=== PATIENT | female | born 1990 | race African-American/Black ===

== ENCOUNTER 2017-01-29 19:20 | Emergency (ER) | payer OTHER ==
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
[2017-01-29 19:47] VITALS: BP 134/98; PULSE 76; TEMP 97.9; BMI 27.4
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
== END 2017-01-29 21:38 | disposition home or self-care (01) ==
LOC: JER 19:20
DX: H72.91 Unspecified perforation of tympanic membrane, right ear (principal); Y04.2XXA Assault by strike against or bumped into by another person, initial encounter; Y07.03 Male partner, perpetrator of maltreatment and neglect; X58.XXXA Exposure to other specified factors, initial encounter; Y93.89 Activity, other specified; Y92.9 Unspecified place or not applicable
CPT/HCPCS: 70450-TC; 70486-TC; 84703; 99282-25

== ENCOUNTER 2017-05-26 09:01 | Emergency (ER) | payer OTHER ==
[2017-05-26 09:07] VITALS: BP 132/105; PULSE 61; TEMP 98.2; BMI 24.0
[2017-05-26 09:58] LABS: URINE APPEARANCE SLCLOUDY; URINE BILIRUBIN NEGATIVE (NEGATIVE); URINE BLOOD 1+ (NEGATIVE); URINE COLOR YELLOW; URINE GLUCOSE (UA) NEGATIVE (NEGATIVE); URINE KETONE NEGATIVE (NEGATIVE); URINE NITRITE NEGATIVE (NEGATIVE); URINE PROTEIN NEGATIVE (NEGATIVE); URINE UROBILINOGEN NEGATIVE mg/dL (0.2-1.0)
--- NOTE | 2017-05-26 10:45 | PDOC ---
History of Present Illness - General Chief Complaint: Sore Throat Stated Complaint: SOB, THROAT PAIN Time Seen by Provider: 05/26/17 09:17 History Source: Patient Exam Limitations: No Limitations - History of Present Illness Initial Comments: 05/26/17 10:43 Patient is a [26-year-old female, has significant history for swelling of the neck for greater than 2 months currently being worked up by her PMD, has thyroid scan scheduled on Monday. Patient to emergency department today requesting thyroid scan states she does not want to wait till Monday. Patient denies any new symptoms, no difficulty swallowing, no fever, no difficulty breathing, no chest pain or shortness of breath. Patient also just completed her menses and states that she noticed a small amount of blood in her urine was just concerned. Denies any pain, no urinary frequency did have a urinary tract infection 1 month prior was concerned she still may have infection.] Past Medical History: [Denies]. Allergies: No known allergies Medications: [None] Family History: Non-contributory Social History: Denies smoking, alcohol use, or IVDU Review of Systems GENERAL/CONSTITUTIONAL: [No fever or chills. No weakness. No weight change.] HEAD, EYES, EARS, NOSE AND THROAT: [No change in vision. No ear pain or discharge. No sore throat. Swelling to the neck. ] CARDIOVASCULAR: [No chest pain or shortness of breath.] RESPIRATORY: [No cough, wheezing, or hemoptysis.] GASTROINTESTINAL: [No nausea, vomiting, diarrhea or constipation. No rectal bleeding.] GENITOURINARY: [No dysuria, frequency, or change in urination.] MUSCULOSKELETAL: [No joint or muscle swelling or pain. No neck or back pain.] SKIN AND BREASTS: [No rash or easy bruising.] NEUROLOGIC: [No headache, vertigo, loss of consciousness, or loss of sensation.] PSYCHIATRIC: [No depression or anxiety.] ENDOCRINE: [No increased thirst. No abnormal weight change.] HEMATOLOGIC/LYMPHATIC: [No anemia, easy bleeding, or history of blood clots.] ALLERGIC/IMMUNOLOGIC: [No hives or skin allergy. No latex allergy.] Physical Exam: GENERAL: [The patient is awake, alert, and fully oriented, in no acute distress. ] HEAD: [Normal with no signs of trauma.] EYES: [Pupils equal, round and reactive to light, extraocular movements intact, sclera anicteric, conjunctiva clear.] ENT: [Ears normal, nares patent, oropharynx clear without exudates. Moist mucous membranes. No uvula deviation] NECK: [Normal range of motion, supple without lymphadenopathy, JVD, or masses. ] LUNGS: [Breath sounds equal, clear to auscultation bilaterally. No wheezes, and no crackles.] HEART: [Regular rate and rhythm, normal S1 and S2 without murmur, rub or gallop. ] ABDOMEN: [Soft, nontender, normoactive bowel sounds. No guarding, no rebound. No masses. No bruising or abrasions] MUSCULOSKELETAL: [Normal range of motion, no edema. No clubbing or cyanosis. No cords, erythema, or tenderness. No CVA Tenderness with fist.] NEUROLOGICAL: [Cranial nerves II through XII grossly intact. Normal speech, normal gait.] SKIN: [Warm, Dry, normal turgor, no rashes or lesions noted.] Past History - Past Medical History Allergies/Adverse Reactions: Allergies Allergy/AdvReac Type Severity Reaction Status Date / Time No Known Allergies Allergy Verified 05/26/17 09:03 Home Medications: Ambulatory Orders NK [No Known Home Medication] 05/26/17 COPD: No Other medical history: DENIES. - Reproductive History (#): 1 Para: 1 - Immunization History Immunization Up to Date: Yes - Suicide/Smoking/Psychosocial Hx Smoking Status: No Smoking History: Never smoked Have you smoked in the past 12 months: No Number of Cigarettes Smoked Daily: 0 Hx Alcohol Use: No Drug/Substance Use Hx: No Substance Use Type: None *Physical Exam - Vital Signs Last Vital Signs Temp Pulse Resp BP Pulse Ox 98.2 F 61 19 132/105 100 05/26/17 09:03 05/26/17 09:03 05/26/17 09:03 05/26/17 09:03 05/26/17 09:03 ED Treatment Course - ADDITIONAL ORDERS Additional order review: Laboratory Results 05/26/17 09:41 Urine Color Yellow Urine Appearance Slcloudy Urine pH 5.0 Ur Specific [place] 1.027 Urine Protein Negative Urine Glucose (UA) Negative Urine Ketones Negative Urine Blood 1+ H Urine Nitrite Negative Urine Bilirubin Negative Urine Urobilinogen Negative Urine HCG, Qual Negative Medical Decision Making - Medical Decision Making 05/26/17 11:40 A/P: Patient here for evaluation and requesting thyroid scan states that she feels fullness to her neck does have an appointment for scan on Monday and has been being followed by her primary care doctor for same. Patient denies any new complaints, there is no difficulty swallowing, no difficulty breathing, no chest pain or shortness of breath I explained to patient that she really has an appointment and is being followed by her PMD there is no acute process going on at this time. Patient will need to follow-up with her scheduled appointment at her PMD. Patient also concerned because her menses has just completed and she noticed a small amount of blood on the paper when wiping also recently a UTI concerned she still may have infection, urinalysis sent there is +1 blood with no evidence of infection +1 most likely from completing menses. Patient will follow-up with her PMD without current complaint. I discussed the physical exam findings, ancillary test results and final diagnoses with the patient. I answered all of the patient's questions. The patient was satisfied with the care received and felt comfortable with the discharge plan and treatment plan. The patient will call to arrange follow-up and will return to the Emergency Department with any new, persistent or worsening symptoms. *DC/Admit/Observation/Transfer Diagnosis at time of Disposition: History of neck swelling Blood in urine Qualifiers: Hematuria type: benign essential microscopic Qualified Code(s): R31.1 - Benign essential microscopic hematuria - Discharge Dispostion Disposition: HOME Condition at time of disposition: Good Admit: No - Referrals Referrals: Kris Clayton [Primary Care Provider] - - Patient Instructions Additional Instructions: PLease follow-up with your scheduled thyroid scan and follow up with her primary care doctor upon discharge today. Recommend follow up with urology - Post Discharge Activity Forms/Work/School Notes: Back to Work
[2017-05-26 11:35] LABS: URINE MUCUS RARE; URINE RBC 2 /hpf (0-3); URINE WBC <1 /hpf (3-5)
[2017-05-26 20:09] LABS: URINE LEUK ESTERASE Negative (NEGATIVE)
== END 2017-05-26 10:46 | disposition home or self-care (01) ==
LOC: JERFT 09:01
DX: R22.1 Localized swelling, mass and lump, neck (principal); R31.1 Benign essential microscopic hematuria
CPT/HCPCS: 81003; 81015; 84703; 87086; 99281-25

== ENCOUNTER 2017-09-27 16:07 | Emergency (ER) | payer OTHER ==
--- NOTE | 2017-09-27 16:13 | PDOC ---
Rapid Medical Evaluation Time Seen by Provider: 09/27/17 16:09 Medical Evaluation: Allergies Allergy/AdvReac Type Severity Reaction Status Date / Time No Known Allergies Allergy Verified 09/27/17 16:10 I have performed a brief in-person evaluation of this patient. The patient presents with a chief complaint of: left sided back pain with deep inspiration x 2 days Pertinent physical exam findings: none I have ordered the following: hcg, CXR The patient will proceed to the ED for further evaluation.
[2017-09-27 16:14] VITALS: BP 135/51; PULSE 67; TEMP 98.6; BMI 25.7
--- NOTE | 2017-09-27 16:32 | PDOC ---
History of Present Illness - General Chief Complaint: Back Pain Stated Complaint: BACK PAIN Time Seen by Provider: 09/27/17 16:09 History Source: Patient Exam Limitations: No Limitations - History of Present Illness Initial Comments: 09/27/17 17:42 Patient is a 27-year-old female no past medical history who presents to the emergency department today complaining of mid back pain when she breathes. Patient states that when she takes a deep breath she feels a sharp pain. Patient states that she had a cough the last 2 weeks. It is since resolved. Patient also states that she has some burning on urination and notices white cottage cheese like discharge. Denies fevers, chills, shortness of breath, difficulty breathing, sore throat, chest pain, gait change, hematuria, nausea, vomiting and diarrhea, saddle anesthesia and bladder or bowel incontinence.. Past History - Travel Traveled outside of the country in the last 30 days: No Close contact w/someone who was outside of country & ill: No - Past Medical History Allergies/Adverse Reactions: Allergies Allergy/AdvReac Type Severity Reaction Status Date / Time No Known Allergies Allergy Verified 09/27/17 16:10 Home Medications: Ambulatory Orders Cephalexin Monohydrate [Keflex -] 500 mg PO BID #14 capsule 09/27/17 Fluconazole 150 mg PO ONCE #2 tablet 09/27/17 COPD: No Other medical history: denies. - Reproductive History (#): 1 Para: 1 - Immunization History Immunization Up to Date: Yes - Suicide/Smoking/Psychosocial Hx Smoking Status: No Smoking History: Never smoked Have you smoked in the past 12 months: No Number of Cigarettes Smoked Daily: 0 Hx Alcohol Use: No Drug/Substance Use Hx: No Substance Use Type: None Review of Systems - Review of Systems Able to Perform ROS?: Yes Comments:: 09/27/17 16:32 CONSTITUTIONAL: Absent: fever, chills, diaphoresis, generalized weakness, malaise, loss of appetite HEENT: Absent: rhinorrhea, nasal congestion, throat pain, throat swelling, difficulty swallowing, mouth swelling, ear pain, eye pain, visual Changes CARDIOVASCULAR: Absent: chest pain, loss of consciousness, palpitations, irregular heart rate, peripheral edema RESPIRATORY: Absent: cough, shortness of breath, dyspnea with exertion, orthopnea, wheezing, stridor, hemoptysis GASTROINTESTINAL: Absent: abdominal pain, abdominal distension, nausea, vomiting, diarrhea, constipation, melena, hematochezia GENITOURINARY: Present: dysuria, vaginal discharge Absent: frequency, urgency, hesitancy, hematuria, flank pain, genital pain MUSCULOSKELETAL: Present: Mid back pain Absent: myalgia, arthralgia, joint swelling SKIN: Absent: rash, itching, pallor HEMATOLOGIC/IMMUNOLOGIC: Absent: easy bleeding, easy bruising, lymphadenopathy, frequent infections ENDOCRINE: Absent: unexplained weight gain, unexplained weight loss, heat intolerance, cold intolerance NEUROLOGIC: Absent: headache, focal weakness or paresthesias, dizziness, unsteady gait, seizure, mental status changes, bladder or bowel incontinence PSYCHIATRIC: Absent: anxiety, depression, suicidal or homicidal ideation, hallucinations. Is the patient limited Polish proficient: No *Physical Exam - Vital Signs Last Vital Signs Temp Pulse Resp BP Pulse Ox 98.6 F 67 19 135/51 100 09/27/17 16:10 09/27/17 16:10 09/27/17 16:10 09/27/17 16:10 09/27/17 16:10 - Physical Exam Comments: 09/27/17 16:32 GENERAL: Well developed, well nourished. Awake and alert. No acute distress. HEENT: Normocephalic, atraumatic. PERRLA, EOMI. No conjunctival pallor. Sclera are non- icteric. Moist mucous membranes. Oropharynx is clear. NECK: Supple. Full ROM. No JVD. Carotid pulses 2+ and symmetric, without bruits. No thyromegaly. No lymphadenopathy. CARDIOVASCULAR: Regular rate and rhythm. No murmurs, rubs, or gallops. Distal pulses are 2+ and symmetric. PULMONARY: No evidence of respiratory distress. Lungs clear to auscultation bilaterally. No wheezing, rales or rhonchi. ABDOMINAL: Soft. Non-tender. Non-distended. No rebound or guarding. No organomegaly. Normoactive bowel sounds. MUSCULOSKELETAL Normal range of motion at all joints. No bony deformities or tenderness. No CVA tenderness. EXTREMITIES: No cyanosis. No clubbing. No edema. No calf tenderness. SKIN: Warm and dry. Normal capillary refill. No rashes. No jaundice. NEUROLOGICAL: Alert, awake, appropriate. Cranial nerves 2-12 intact. No deficits to light touch and temperature in face, upper extremities and lower extremities. No motor deficits in the in face, upper extremities and lower extremities. Normoreflexic in the upper and lower extremities. Normal speech. Toes are down- going bilaterally. Gait is normal without ataxia. PSYCHIATRIC: Cooperative. Good eye contact. Appropriate mood and affect. General Appearance: Yes: Nourished Medical Decision Making - Medical Decision Making 09/27/17 17:52 Patient is a 27-year-old female no past medical history who presents with 2 days of mid back pain. Pain is reproducible with a deep breath. X-rays negative for pneumonia or fractures. Urine does show 2+ leukocytes with white blood cells. We'll treat as a potential UTI at this time. Patient also with weight cottage cheese-like discharge consistent with a yeast infection. We'll treat at this time. Patient understands all discharge instructions and all questions were answered at this time. Patient was instructed to follow-up with her return [facility] of her symptoms do not improve *DC/Admit/Observation/Transfer Diagnosis at time of Disposition: Vaginal discharge UTI (urinary tract infection) Qualifiers: Urinary tract infection type: acute cystitis Hematuria presence: without hematuria Qualified Code(s): N30.00 - Acute cystitis without hematuria Back pain Qualifiers: Back pain location: back pain in other location Chronicity: acute Qualified Code(s): M54.9 - Dorsalgia, unspecified - Discharge Dispostion Disposition: HOME Condition at time of disposition: Stable Admit: No - Prescriptions Prescriptions: Cephalexin Monohydrate [Keflex -] 500 mg PO BID #14 capsule Fluconazole 150 mg PO ONCE #2 tablet - Referrals Referrals: Kris Clayton [Primary Care Provider] - - Patient Instructions Printed Discharge Instructions: DI for Urinary Tract Infection (UTI), DI for Thoracic Back Pain Additional Instructions: Your back pain pain is most likely due from coughing. Your chest x-ray was negative. Your urine showed infection. Your given Keflex. Please take this medication twice a day for one week. Your also given fluconazole for your [place] infection. Take one pill today and then one pill on Monday. Drink plenty of fluids. You may take Motrin 600 mg every 8 hours as needed for pain. Follow-up with her primary care doctor and [facility] this week. Return to the emergency department if you've worsening pain, short of breath, difficulty breathing, or have any changes in her symptoms. - Post Discharge Activity Forms/Work/School Notes: Back to Work
[2017-09-27] MEDS ORDERED: IBUPROFEN 600 MG TABLET (FP) PO ONE ×2 (16:40→16:52)
[2017-09-27 16:43] LABS: URINE APPEARANCE SLCLOUDY; URINE BILIRUBIN NEGATIVE (<2.0 mg/dL); URINE BLOOD NEGATIVE (NEGATIVE); URINE COLOR YELLOW; URINE GLUCOSE (UA) NEGATIVE (NEGATIVE); URINE KETONE TRACE (NEGATIVE); URINE NITRITE NEGATIVE (NEGATIVE); URINE PROTEIN NEGATIVE (NEGATIVE)
[2017-09-27 16:47] LABS: URINE LEUK ESTERASE 2+ (NEGATIVE)
[2017-09-27 16:52] LABS: EPI CELLS RARE /HPF (FEW); URINE BACTERIA RARE /hpf (NONE SEEN); URINE HYALINE CAST 2 /lpf; URINE MUCUS MANY
== END 2017-09-27 17:54 | disposition home or self-care (01) ==
LOC: JERFT 16:07
DX: N89.8 Other specified noninflammatory disorders of vagina (principal); N30.00 Acute cystitis without hematuria; M54.9 Dorsalgia, unspecified
CPT/HCPCS: 71046-TC-FY; 81003; 81015; 84703; 99281-25

== ENCOUNTER 2018-05-18 15:38 | Emergency (ER) | payer OTHER ==
--- NOTE | 2018-05-18 15:53 | PDOC ---
History of Present Illness - General Stated Complaint: SOB Time Seen by Provider: 05/18/18 15:53 History Source: Patient Exam Limitations: No Limitations - History of Present Illness Initial Comments: Pt presenting with complaints of nasal congestion, dry cough, subjective chills , and sore throat x3 days. Pt states the throat pain started about 3 days ago, and is "aching" in nature. It is exacerbated when attempting to swallow and take food and fluids. Pt has been tolerating her saliva and PO fluid intake, but has limited appetite. Pt took "a tylenol about a day ago," and has tried nyquil with limited relief of symptoms. The cough is non-productive of sputum nor hemoptysis. Pt also admits to unprotected oral intercourse with a new partner 1 day before symptoms started (she is unaware of his STD history), and is concerned she may have gonorrrhea in her throat. Pt denies any fevers, headache, nuchal rigidity, vision changes, chest pain, palpitations, SOB, nausea /vomiting, abdominal pain, urinary symptoms, diarrhea/constipation, or leg swelling. Pt denies any cigarette, alcohol, or drug use. Pt denies any recent travel or sick contacts. 05/18/18 17:15 05/18/18 17:32 Past History - Travel Traveled outside of the country in the last 30 days: No Close contact w/someone who was outside of country & ill: No - Past Medical History Allergies/Adverse Reactions: Allergies Allergy/AdvReac Type Severity Reaction Status Date / Time No Known Allergies Allergy Verified 09/27/17 16:10 Home Medications: Ambulatory Orders Cephalexin Monohydrate [Keflex -] 500 mg PO BID #14 capsule 09/27/17 Fluconazole 150 mg PO ONCE #2 tablet 09/27/17 Azithromycin 500 mg PO DAILY 4 Days #4 tablet 05/18/18 Diabetes: No HTN: No Hypercholesterolemia: No - Surgical History Abdominal Surgery: No Cardiac Surgery: No - Reproductive History (#): 1 Para: 1 - Immunization History Immunization Up to Date: Yes - Suicide/Smoking/Psychosocial Hx Smoking Status: No Smoking History: Never smoked Have you smoked in the past 12 months: No Number of Cigarettes Smoked Daily: 0 Hx Alcohol Use: No Drug/Substance Use Hx: No Substance Use Type: None Review of Systems - Review of Systems Able to Perform ROS?: Yes Is the patient limited Indonesian proficient: No Constitutional: Yes: Chills, Loss of Appetite, Weight Stable. No: Diaphoresis, Fever (subjective), Night Sweats, Weakness HEENTM: Yes: Nose Congestion, Throat Pain, Throat Swelling, Difficulty Swallowing. No: Blurred Vision, Recent change in vision, Hearing Loss, Mouth Swelling Respiratory: Yes: Cough (dry). No: Orthopnea, Shortness of Breath, Wheezing, Productive cough, Hemoptysis Cardiac (ROS): No: Chest Pain, Edema, Irregular Heart Rate, Lightheadedness, Palpitations, Syncope, Chest Tightness ABD/GI: Yes: Poor Appetite (not wanting to eat due to throat pain). No: Constipated, Diarrhea, Nausea, Poor Fluid Intake, Vomiting : No: Burning, Dysuria, Discharge, Frequency, Flank Pain, Hematuria, Pain, Urgency Musculoskeletal: No: Back Pain, Joint Pain, Muscle Pain, Muscle Weakness Integumentary: No: Lesions, Rash Neurological: No: Headache, Seizure, Weakness, Unsteady Gait, Ataxia, Dizziness Psychiatric: No: Sleep Pattern Change, Change in Appetite (only with recent illness) Endocrine: No: Increased Urine, Change in Weight Hematologic/Lymphatic: No: Anemia, Blood Clots, Easy Bleeding, Easy Bruising All Other Systems: Reviewed and Negative *Physical Exam - Physical Exam General Appearance: Yes: Nourished, Appropriately Dressed. No: Apparent Distress (pt lying comfortably, vitals stable.) HEENT: positive: EOMI, CHELSY, Normal Voice, Symmetrical, TMs Normal, Scleral Icterus (R), Scleral Icterus (L), Pharyngeal Erythema, Tonsillar Exudate (mild pharyngeal edema and erythema, with tonsillar exudate on the R), Tonsillar Erythema, Hearing Grossly Normal. negative: Normal ENT Inspection, Pharynx Normal, Nasal Congestion, Rhinorrhea, Sinus Tenderness, TM Bulging, TM Dull, TM Erythema, Lesions, Excessive drooling, Thrush Neck: positive: Trachea midline, Normal Thyroid, Supple, Lymphadenopathy (R) ( mild submandibular LAD), Lymphadenopathy (L) (mild submandibular LAD). negative : Tender, Rigid Respiratory/Chest: positive: Lungs Clear, Normal Breath Sounds. negative: Chest Tender, Respiratory Distress, Accessory Muscle Use, Crackles, Wheezing Cardiovascular: positive: Regular Rhythm, Regular Rate, S1, S2. negative: Edema , JVD, Murmur Vascular Pulses: Carotid (R): 4+, Carotid (L): 4+ Gastrointestinal/Abdominal: positive: Normal Bowel Sounds, Flat, Soft. negative : Tender, Organomegaly, Pulsatile Mass, Distended, Guarding, Rebound Rectal Exam: positive: deferred Lymphatic: positive: Adenopathy (mild submandibular LAD). negative: Tenderness Musculoskeletal: positive: Normal Inspection. negative: CVA Tenderness Extremity: positive: Normal Capillary Refill, Normal Inspection, Normal Range of Motion, Pelvis Stable. negative: Tender, Pedal Edema Integumentary: positive: Normal Color, Dry, Warm. negative: Jaundice, Clammy, Diaphoresis, Rash Neurologic: positive: dispatch clerk II-XII NML intact, Fully Oriented, Alert, Normal Mood/ Affect, Normal Response, Motor Strength 5/5 Medical Decision Making - Medical Decision Making Pt was seen at bedside, also will be seen by attending Dr. Barrera. Pt presenting with complaints of nasal congestion, dry cough, subjective chills, and sore throat x3 days. Pt states the throat pain started about 3 days ago, and is "aching" in nature. It is exacerbated when attempting to swallow and take food and fluids. Pt has been tolerating her saliva and PO fluid intake, but has limited appetite. Pt took "a tylenol about a day ago," and has tried nyquil with limited relief of symptoms. The cough is non-productive of sputum nor hemoptysis. Pt also admits to unprotected oral intercourse with a new partner 1 day before symptoms started (she is unaware of his STD history), and is concerned she may have gonorrrhea in her throat. Pt denies any fevers, headache, nuchal rigidity, vision changes, chest pain, palpitations, SOB, nausea /vomiting, abdominal pain, urinary symptoms, diarrhea/constipation, or leg swelling. PE showed tonsillar swelling and R tonsillar exudate, with minimal submandibular b/l LAD. Pt is tolerating her secretions in the department, and was able to drink a cup of water without difficulty. No TM erythema or bulging. Heart and lung sounds clear, no wheezing or diminished breath sounds. No abdominal or CVA tenderness. No joint or leg swelling. Considering strep throat vs mono vs gonorrhea/chlamydia. Advised pt to use protection even with oral intercourse. Ordered work-up including HIV test, gonorrhea/chlamydia throat swab, rapid strep test, serum , monospot test. Provided 10 mg PO liquid decadron and 600 mg ibuprofen (pending negative test) for improvement of pain and throat swelling. Will continue to reassess pt and monitor for symptomatic improvement. Swabs and blood sent for labwork. 05/18/18 17:00 Group A strep test negative. Will proceed with antibiotic treatment, as pt has clinical signs of strep throat. 05/18/18 17:08 Providing 500 mg PO Azithromycin Qday x5 days, providing first dose in the department (to cover for potential false negative strep throat, as well as gonorrhea/chlamydia). Pending additional results. 05/18/18 17:14 HIV test negative. Pending monospot and pharyngeal g/c cultures which will be reported by the lab. Provided pt 600 mg PO motrin, decadron, and first dose of azithromycin in the department. Considering normal lab results and benign exam, pt can be discharged to home with follow-up. Pt advised to follow-up with PCP in 1-2 days. Strict return precautions provided with pt understanding. 05/18/18 17:45 *DC/Admit/Observation/Transfer Diagnosis at time of Disposition: Pharyngitis Qualifiers: Pharyngitis/tonsillitis etiology: unspecified etiology Qualified Code(s): J02.9 - Acute pharyngitis, unspecified - Discharge Dispostion Disposition: HOME Condition at time of disposition: Good Decision to Admit order: No - Prescriptions Prescriptions: Azithromycin 500 mg PO DAILY 4 Days #4 tablet - Referrals Referrals: Kris Clayton [Non Staff, Medical] - - Patient Instructions Additional Instructions: You were seen in the ER today for congestion and throat pain. The results of your labs today were normal, and the lab will call if you have any other positive results. Please follow-up with your primary care doctor within 1-2 days to discuss your visit and make sure your symptoms have improved. Please return to the ER if you have any worsening pain, drainage from your throat or inability to tolerate your saliva, development of fevers or chills, loss of consciousness, inability to tolerate food or fluids, or any other concerns. - Post Discharge Activity
--- NOTE | 2018-05-18 16:14 | PDOC ---
Attending Attestation - HPI HPI: 05/18/18 16:37 The patient is a 27 year old female with no significant PMH who presents to the emergency department with 3 day history of congestion, nonproductive cough, chills, sore throat, and difficulty swallowing. Patient reports she can tolerate PO intake. Patients O2 sat is 100 here in the ER. Patient reports having unprotected oral sex yesterday. The patient denies chest pain, shortness of breath, headache and dizziness. Denies fever, nausea, vomit, diarrhea and constipation. Denies dysuria, frequency, urgency and hematuria. Allergies: NKA Past surgical history: None reported. Social history: No reported alcohol, drug, or cigarette use. - Physicial Exam PE: 05/18/18 16:45 ADULT PHYSICAL EXAM Constitutional: Awake, alert, oriented. No acute distress. Eyes: PERRL. EOMI. Conjunctivae are not pale. ENT: Mucous membranes are moist. Bilateral erythematous and swollen tonsils, right tonsil has excudates. Small submandibular lymph node. Neck: Supple. Full ROM. No lymphadenopathy. Cardiovascular: Regular rate. Regular rhythm. Pulmonary/Chest: No evidence of respiratory distress. Clear to auscultation bilaterally. Abdominal: Soft and non-distended. There is no tenderness. No rebound, guarding or rigidity. No organomegaly. No palpable masses. Good bowel sounds. Musculoskeletal: No edema. No cyanosis. No clubbing. Full range of motion in all extremities. Nocalf tenderness. Radial/pedal pulses are intact and 2+ bilaterally Skin: Skin is warm and dry. No rashes. Neurological: Cranial nerves II-XII are grossly intact. Psychiatric: Good eye contact. Normal interaction, affect and behavior. - Medical Decision Making <Evelyn Yang - Last Filed: 05/18/18 16:45> - Resident Resident Name: Pricila Medeiros - ED Attending Attestation I have performed the following: I have examined & evaluated the patient, The case was reviewed & discussed with the resident, I agree w/resident's findings & plan, Exceptions are as noted - Medical Decision Making 05/18/18 16:14 I, Dr. Yanet Barrera, DO, attest that this document has been prepared under my direction and personally reviewed by me in its entirety. I further attest, that it accurately reflects all work, treatment, procedures and medical decision -making performed by me. 05/18/18 16:47 a/p: 27yo female with sore throat x 3 days -will check strep swab -also recent oral sex encounter and worried about STI as cause of pharyngitis - will send pharyngeal GC/Chlam -requests HIV test and mono -will treat with decadron and motrin -serum preg -most likely strep pharyngitis and will most likely need abx 05/18/18 17:41 HIV negative strep negative, culture pending will treat with azithro stable for d/c to home <Yanet Barrera - Last Filed: 05/18/18 17:41>
[2018-05-18] MEDS ORDERED: DEXAMETHASONE LIQUID 0.5 MG/5 ML 240 ML BULK BOTTLE PO ONE (16:23)
[2018-05-18 17:02] LABS: THROAT:GRP A STREP ANTIGEN Negative
[2018-05-18] MEDS ORDERED: AZITHROMYCIN 500 MG TABLET PO ONE (17:11)
[2018-05-18] MEDS ORDERED: IBUPROFEN 600 MG TABLET (FP) PO ONE ×2 (17:41→17:45)
[2018-05-18] MEDS ORDERED: DEXAMETHASONE SOD PHOSPHATE 10 MG/1 ML VIAL ONE (17:44)
[2018-05-18] MEDS ORDERED: AZITHROMYCIN 500 MG TABLET ONE (17:45)
== END 2018-05-18 17:50 | disposition home or self-care (01) ==
LOC: JER 15:38
DX: J02.9 Acute pharyngitis, unspecified (principal)
CPT/HCPCS: 36415; 84703; 86308; 87070; 87077; 87389; 87880; 99281-25

== ENCOUNTER 2018-07-29 11:35 | Emergency (ER) | payer OTHER ==
[2018-07-29 11:39] VITALS: BP 128/71; PULSE 84; TEMP 98.1; BMI 25.7
--- NOTE | 2018-07-29 12:42 | PDOC ---
History of Present Illness - General Chief Complaint: Wound Stated Complaint: DIZZYNESS / POSSIBLE INFECTION History Source: Patient Exam Limitations: No Limitations - History of Present Illness Initial Comments: 07/29/18 12:46 Here for evaluation of right breast tenderness. States 2-3 days ago had fevers, chills, and felt unwell. States then yesterday morning noticed some tenderness to her right breast along nipple and has worsened today. States had nipples pierced 3 months ago, but also had contact with the sexual encounter where had some oral contact from partner to her breast, and wonders/worries may be related. Used hot soaks yesterday and Tylenol but has progressively worsened Timing/Duration: reports: getting worse Severity: Yes: mild, moderate Associated Symptoms: reports: fever, flushing, headache Past History - Travel Traveled outside of the country in the last 30 days: No Close contact w/someone who was outside of country & ill: No - Past Medical History Allergies/Adverse Reactions: Allergies Allergy/AdvReac Type Severity Reaction Status Date / Time No Known Allergies Allergy Verified 07/29/18 11:39 Home Medications: Ambulatory Orders Cephalexin Monohydrate [Keflex -] 500 mg PO Q8H #21 capsule 07/29/18 COPD: No Diabetes: No HTN: No Hypercholesterolemia: No - Surgical History Abdominal Surgery: No Cardiac Surgery: No - Reproductive History (#): 1 Para: 1 - Immunization History Immunization Up to Date: Yes - Suicide/Smoking/Psychosocial Hx Smoking Status: No Smoking History: Never smoked Have you smoked in the past 12 months: No Number of Cigarettes Smoked Daily: 0 Hx Alcohol Use: No Drug/Substance Use Hx: No Substance Use Type: None Review of Systems - Review of Systems Able to Perform ROS?: Yes Is the patient limited Khmer proficient: Yes Constitutional: Yes: Symptoms Reported, See HPI, Chills, Fever, Malaise HEENTM: No: Symptoms Reported Respiratory: No: Symptoms reported Integumentary: Yes: Symptoms Reported, See HPI, Erythema, Lesions, Lumps Neurological: No: Symptoms reported All Other Systems: Reviewed and Negative *Physical Exam - Vital Signs Last Vital Signs Temp Pulse Resp BP Pulse Ox 98.1 F 84 18 128/71 99 07/29/18 11:37 07/29/18 11:37 07/29/18 11:37 07/29/18 11:37 07/29/18 11:37 - Physical Exam General Appearance: Yes: Nourished, Appropriately Dressed, Apparent Distress, Mild Distress HEENT: positive: CHELSY, Normal ENT Inspection, TMs Normal, Pharynx Normal. negative: Pharyngeal Erythema Neck: positive: Supple. negative: Tender, Lymphadenopathy (R), Lymphadenopathy (L) Respiratory/Chest: positive: Lungs Clear, Normal Breath Sounds Musculoskeletal: positive: Normal Inspection Extremity: negative: Normal Capillary Refill, Normal Inspection Integumentary: positive: Erythema, Pale, Other (pain to right breast with erythema ~ 10cm2 to outer lower quadrant with pain at nipple- site of piercing. Is tenderness without fluctuance) Neurologic: positive: java xml developer II-XII NML intact, Fully Oriented, Alert, Normal Mood/ Affect, Normal Response, Motor Strength 5/5 Moderate Sedation - Procedure Monitoring Vital Signs: Procedure Monitoring Vital Signs Temperature 98.1 F 07/29/18 11:37 Pulse Rate 84 07/29/18 11:37 Respiratory Rate 18 07/29/18 11:37 Blood Pressure 128/71 07/29/18 11:37 O2 Sat by Pulse Oximetry (%) 99 07/29/18 11:37 Progress Note - Progress Note Progress Note: UCG is negative therefore will treat with antibiotics, hot soaks and have follow -up with BUSINESS SERVICES REPRESENTATIVE or PMD in 2-3 days for wound check *DC/Admit/Observation/Transfer Diagnosis at time of Disposition: Cellulitis of breast - Discharge Dispostion Disposition: HOME Condition at time of disposition: Stable Decision to Admit order: No - Prescriptions Prescriptions: Cephalexin Monohydrate [Keflex -] 500 mg PO Q8H #21 capsule - Referrals Referrals: Kris Clayton [Primary Care Provider] - - Patient Instructions Printed Discharge Instructions: DI for Cellulitis -- Adult Additional Instructions: Rest, keep area elevated. Avoid strenuous activity or exercise until wound is healed Use hot soaks to area to bring more blood to the surface and encourage drainage Taken out breast piercing until wound is clear, very well-healed Allow water from shower to wash area thoroughly for 2-3 minutes, and pat dry upon exit of shower \ May use Tylenol or Motrin for mild pain relief Continue all medications as prescribed Followup with private physician in 2-3 days for wound check Return to emergency Department for worsening swelling, pain, redness, fevers as needed - Post Discharge Activity Forms/Work/School Notes: Back to Work
[2018-07-29] MEDS ORDERED: ACETAMINOPHEN 500 MG TABLET (FP) PO ONE (12:49)
[2018-07-29] MEDS ORDERED: ACETAMINOPHEN 500 MG TABLET (FP) ONE (13:01)
== END 2018-07-29 13:33 | disposition home or self-care (01) ==
LOC: JERFT 11:35
DX: N61.0 Mastitis without abscess (principal)
CPT/HCPCS: 84703; 99281-25

== ENCOUNTER 2019-04-19 18:40 | Emergency (ER) | payer OTHER ==
--- NOTE | 2019-04-19 18:43 | PDOC ---
Rapid Medical Evaluation Time Seen by Provider: 04/19/19 18:41 Medical Evaluation: Allergies Allergy/AdvReac Type Severity Reaction Status Date / Time No Known Allergies Allergy Verified 07/29/18 11:39 04/19/19 18:41 I have performed a brief in-person evaluation of this patient. The patient presents with a chief complaint of: Pt w/ h/o anemia p/w fatigue, generalized weakness for a few months. She also needs a note for work. CBC, UCG ordered The patient will proceed to the ED for further evaluation. Discharge Disposition - Diagnosis Fatigue - Referrals - Patient Instructions - Post Discharge Activity
[2019-04-19 18:45] VITALS: BP 117/84; PULSE 65; TEMP 98.6; BMI 25.0
[2019-04-19 19:22] LABS: BASO % 0.7 % (0-2.0); EOS % 2.8 % (0-4.5); HEMOGLOBIN 13.1 GM/dL (10.7-15.3); LYMPH % 24.9 % (8-40); MCH 30.7 pg (25.7-33.7); MCHC 33.5 g/dl (32.0-36.0); MEAN CELL VOLUME 91.7 fl (80-96); MEAN PLT VOLUME 8.2 fl (7.5-11.1); MONO % 6.3 % (3.8-10.2); NEUT % 65.3 % (42.8-82.8); PLATELET COUNT 258 K/MM3 (134-434); RBC 4.26 M/mm3 (3.60-5.2); RDW 12.3 % (11.6-15.6); WHITE BLOOD COUNT 7.8 K/mm3 (4.0-10.0)
--- NOTE | 2019-04-19 19:28 | PDOC ---
History of Present Illness - General Chief Complaint: Weakness Stated Complaint: FEELING SICK Time Seen by Provider: 04/19/19 18:41 History Source: Patient Exam Limitations: No Limitations - History of Present Illness Initial Comments: 04/19/19 19:26 HISTORY OF PRESENT ILLNESS: This 28-year-old woman with past medical history of iron deficiency anemia presents to the emergency department with fatigue for "months." Patient reports chronically feels tired but has not been evaluated by physician even though symptoms been present for 4 months. Patient denies any fevers, chills, cough, shortness of breath, dizziness or active bleeding. Patient noted to be eating completely laughing and joking with her friends and family members and requested a note for work prior to divulging any complaints. No recent travel or sick contacts. PAST MEDICAL HISTORY: Denies past medical history SURGICAL HISTORY: Denies ALLERGIES: No known drug allergies REVIEW OF SYSTEMS General/Constitutional: See HPI HEENT: Denies change in vision. Denies ear pain or discharge. Denies sore throat. Cardiovascular: Denies chest pain or shortness of breath. Respiratory: Denies cough, wheezing, or hemoptysis. Gastrointestinal: Denies nausea, vomiting, diarrhea or constipation. Denies rectal bleeding. Genitourinary: Denies dysuria, frequency, or change in urination. Musculoskeletal: Denies joint or muscle swelling or pain. Denies neck or back pain. Skin and breasts: Denies rash or easy bruising. Neurologic: Denies headache, vertigo, loss of consciousness, or loss of sensation. Psychiatric: Denies depression or anxiety. Endocrine: Denies increased thirst. Denies abnormal weight change. Hematologic/Lymphatic: Denies anemia, easy bleeding, or history of blood clots. Allergic/Immunologic: Denies hives or skin allergy. Denies latex allergy. PHYSICAL EXAM General Appearance: Well-appearing, appropriately dressed. No apparent distress , no intoxication. HEENT: EOMI, PERRLA, normal ENT inspection, normal voice, TMs normal, pharynx normal. No conjunctival pallor. No photophobia, scleral icterus. Neck: Supple. Trachea midline. No tenderness, rigidity, carotid bruit, stridor , lymphadenopathy, or thyromegaly. Respiratory/Chest: Lungs CTAB. No shortness of breath, chest tenderness, respiratory distress, accessory muscle use. No crackles, rales, rhonchi, stridor , wheezing, dullness Cardiovascular: RRR. S1, S2. No JVD, murmur, bradycardia, tachycardia. Vascular Pulses: Dorsalis-Pedis (R): 2+, Dorsalis-Pedis (L): 2+ Gastrointestinal/Abdominal: Normal bowel sounds. Abdomen soft, non-distended. No tenderness or rebound tenderness. No organomegaly, pulsatile mass, guarding, hernia, hepatomegaly, splenomegaly. Lymphatic: No adenopathy, tenderness. Musculoskeletal/Extremities: Normal inspection. FROM of all extremities, normal capillary refill. Pelvis Stable. No CVA tenderness. No tenderness to extremities, pedal edema, swelling, erythema or deformity. Integumentary: Appropriate color, dry, warm. No cyanosis, erythema, jaundice or rash Neurologic: precision mechanical instrument maker II-XII intact. Fully oriented, alert. Appropriate mood/affect. Motor strength 5/5. No appreciable EOM palsy, facial droop or sensory deficit. Past History - Past Medical History Allergies/Adverse Reactions: Allergies Allergy/AdvReac Type Severity Reaction Status Date / Time No Known Allergies Allergy Verified 04/19/19 18:43 Home Medications: Ambulatory Orders NK [No Known Home Medication] 04/19/19 Anemia: (iron deficiency) COPD: No Diabetes: No HTN: No Hypercholesterolemia: No - Surgical History Abdominal Surgery: No Cardiac Surgery: No - Reproductive History (#): 1 Para: 1 - Immunization History Immunization Up to Date: Yes - Psycho Social/Smoking Cessation Hx Smoking Status: No Smoking History: Never smoked Have you smoked in the past 12 months: No Number of Cigarettes Smoked Daily: 0 Hx Alcohol Use: No Drug/Substance Use Hx: No Substance Use Type: None *Physical Exam - Vital Signs Last Vital Signs Temp Pulse Resp BP Pulse Ox 98.6 F 65 18 117/84 99 04/19/19 18:43 04/19/19 18:43 04/19/19 18:43 04/19/19 18:43 04/19/19 18:43 ED Treatment Course - LABORATORY CBC & Chemistry Diagram: 04/19/19 19:06 Medical Decision Making - Medical Decision Making 04/19/19 19:28 A/P: 28-year-old woman with fatigue for 4 months Physical exam is within normal limits CBC Urine Reassess 04/19/19 20:28 CBC is unremarkable Urine testing is negative I will discharge the patient home with referral for [facility] internal medicine group at [place] to follow-up with primary care. I discussed the physical exam findings, ancillary test results and final diagnoses with the patient. I answered all of the patient's questions. The patient was satisfied with the care received and felt comfortable with the discharge plan and treatment plan. The patient will call their primary care physician within 24 hours to arrange follow-up and will return to the Emergency Department with any new, persistent or worsening symptoms. Discharge - Discharge Information Problems reviewed: Yes Clinical Impression/Diagnosis: Fatigue Qualifiers: Fatigue type: chronic, unspecified Qualified Code(s): R53.82 - Chronic fatigue , unspecified Condition: Stable Disposition: HOME - Admission No - Follow up/Referral Referrals: [facility] [place], [place] Internal Med at [place] [Provider Group] - Patient Discharge Instructions Additional Instructions: He will be given a referral for [facility] internal medicine group at the [facility]. Call to schedule appointment for continued evaluation. Return to the emergency department for any new or worsening symptoms. Thank you very much for choosing us to provide your emergent health care needs. - Post Discharge Activity Work/Back to School Note: Back to Work
== END 2019-04-19 20:38 | disposition home or self-care (01) ==
LOC: JERFT 18:40
DX: R53.82 Chronic fatigue, unspecified (principal); D50.9 Iron deficiency anemia, unspecified
CPT/HCPCS: 36415; 84703; 85025; 99282-25

== ENCOUNTER 2020-04-11 20:35 | Emergency (ER) | payer OTHER ==
[2020-04-11 20:41] VITALS: BP 114/82; PULSE 64; TEMP 98.3; BMI 26.8
--- OUTSIDE RECORDS SUMMARY | 2020-04-11 20:52 | XMS ---
:1990 Author Organization [facility] Care Team Providers Name Role Phone LEDA SAWYER, JOSEPHINE Unavailable LEDA SAWYER, JOSEPHINE Unavailable LEDA SAWYER, JOSEPHINE Unavailable LEDA SAWYER, JOSEPHINE Unavailable LEDA SAWYER, JOSEPHINE Unavailable LEDA SAWYER, JOSEPHINE Unavailable OYEKOLA READING PROFESSOR, MOBOLAJI Unavailable OYEKOLA READING PROFESSOR, MOBOLAJI Unavailable OYEKOLA READING PROFESSOR, MOBOLAJI Unavailable OYEKOLA READING PROFESSOR, MOBOLAJI Unavailable AGYEPONG READING PROFESSOR, TRISTAN Unavailable AGYEPONG READING PROFESSOR, TRISTAN Unavailable ELEAZAR READING PROFESSOR, GISELLE Unavailable ELEAZAR READING PROFESSOR, GISELLE Unavailable ELEAZAR READING PROFESSOR, GISELLE Unavailable ELMIRA JOSEPH MD Unavailable Unavailable ELMIRA JOSEPH MD Unavailable Unavailable OPAL, ELMIRA MD Unavailable Unavailable OPAL, ELMIRA MD Unavailable Unavailable OPAL, ELMIRA MD Unavailable Unavailable OPAL, ELMIRA MD Unavailable Unavailable OPAL, ELMIRA MD Unavailable Unavailable OPAL, ELMIRA MD Unavailable Unavailable OPAL, ELMIRA MD Unavailable Unavailable OPAL, ELMIRA MD Unavailable Unavailable OPAL, ELMIRA MD Unavailable Unavailable Re-disclosure Warning The records that you are about to access may contain information from federally- assisted alcohol or drug abuse programs. If such information is present, then the following federally mandated warning applies: This information has been disclosed to you from records protected by federal confidentiality rules (42 CFR part 2). The federal rules prohibit you from making any further disclosure of this information unless further disclosure is expressly permitted by the written consent of the person to whom it pertains or as otherwise permitted by 42 CFR part 2. A general authorization for the release of medical or other information is NOT sufficient for this purpose. The Federal rules restrict any use of the information to criminally investigate or prosecute any alcohol or drug abuse patient.The records that you are about to access may contain highly sensitive health information, the redisclosure of which is protected by Article 27-F of the [facility] Public Health law. If you continue you may haveaccess to information: Regarding HIV / AIDS; Provided by facilities licensed or operated by the [facility] Office of Mental Health; or Provided by the [facility] Office for People With Developmental Disabilities. If such information is present, then the following [facility] mandated warning applies: This information has been disclosed to you from confidential records which are protected by state law. State law prohibits you from making any further disclosure of this information without the specific written consent of the person to whom it pertains, or as otherwise permitted by law. Any unauthorized further disclosure in violation of state law may result in a fine or chcf sentence or both. A general authorization for the release of medical or other information is NOT sufficient authorization for further disclosure. Allergies and Adverse Reactions Type Description Substance Reaction Status Data Source(s ) Allergy to No Known Allergies No known GREENW AY ([facility] substance allergies [facility] ) Allergy to No Known Allergies No known GREENW AY ([facility] substance allergies [facility] ([facility]) [facility] ) Allergy to No Known Allergies No known GREENW AY ([place] substance allergies [facility] ) Allergy to No Known Allergies No known GREENW AY ([facility] substance allergies [facility] ([facility]) [facility] ) Allergy to No Known Allergies No known GREENW AY ([facility] substance allergies [facility] ([facility] ) Allergy to No Known Allergies No known GREENW AY ([facility] substance allergies [facility] ([facility]) [facility] ) Allergy to No Known Allergies No known GREENW AY ([facility] substance allergies [facility] ([facility] ) Allergy to No Known Allergies No known GREENW AY ([facility] substance allergies [facility] ([facility]) [facility] ) Encounters Encounter Providers Location Date Indications Data Source(s ) Outpatient<t Attender: Rudy Nontoxic FRANCOIS d [facility] 020 GoiterPharyngitisNontoxic ([facility]oj [facility] GoiterPh[facility]itis Gisele [facility] 0 PM [facility]">[facility]</td><td >[address] 03:03:5 READING PROFESSOR</td><td> 4 PM [facility]</td>< td> 0</td><td><c ontent ID="encounte rDiagnosisID 0-0">Pharyng itis</conten t>, <content ID="encounte rDiagnosisID 0-1">Nontoxi c Goiter</cont ent></td> Nontoxic Goiter Pharyngitis Nontoxic Goiter Pharyngitis Outpatient<td Attender: Rudy 09/10/2019 OverweightPruritus GRE EN[place]AY ID="encounterTypeDescriptionID1">WALKINS</td><td>[facility] 02:30:00 PM AniOverweightPruritus (Saroj Rose [facility]</td><td>[facility] EDT - AniOverweightPruritus [facility]</td><td>09/10/2019</td><td><content READING PROFESSOR Center 09/10/2019 [facility] ID="encounterDiagnosisID1-0">Pruritus Ani</content>, 03:57:51 PM AniOverowatonna clinicPrurit Center) <content EDT Ani ID="encounterDiagnosisID1-1">Overweight</content></td> Overweight Pruritus Ani Overweight Pruritus Ani Overweight Pruritus Ani Overweight Pruritus Ani Overweight Pruritus Ani Outpatient<td Attender: Rudy 09/10/2019 [place] ID="encounterTypeDescriptionID2">*[facility] 10:51:00 A M ([place] Show*</td><td>ELMIRA OPAL JOSEPH [place] [facility] [place] - Neighborhood MD</td><td>[facility] 09/10/2019 Health Center</td><td>09/10/2019</td><td></td> 11:59:0 0 PM Center) EDT Outpatient<td Attender: Rudy 08/15/2019 [place] ID="encounterTypeDescriptionID3">*[facility] 01:28:0 0 PM ([place] Update*</td><td>[facility] EST - Neighborhood MD</td><td>[facility] Center 08/15/2019 Health Center</td><td>08/15/2019</td><td></td> 11:59:0 0 PM Center) EST Outpatient<td Attender: Rudy 08/05/2019 [facility] ID="encounterTypeDescriptionID4">[facility] 11:[facility] 00 AM o ([place] </td><td>[facility] EST - u Neighborhood READING PROFESSOR</td><td>[facility] READING PROFESSOR Center 08/05/2019 t Health Center</td><td>08/05/2019</td><td><kelly 12:20: 26 PM i Center) nt ID="encounterDiagnosisID4-0">Urinary EST n Tract Infection</content>, <content e ID="encounterDiagnosisID4-1">Overweight< P /content>, <content r ID="encounterDiagnosisID4-2">Routine e Pre-employment Screening - Examination</content></td> e m p l o y m e n t S c r e e n i n g E x a m i n a t i o n O v e r w e i g h t U r i n a r y T r a c t I n f e c t i o n R o u t i n e P r e - e m p l o y m e n t S c r e e n i n g E x a m i n a t i o n O v e r w e i g h t U r i n a r y T r a c t I n f e c t i o n R o u t i n e P r e - e m p l o y m e n t S c r e e n i n g E x a m i n a t i o n O v e r w e i g h t U r i n a r y T r a c t I n f e c t i o n R o u t i n e P r e - e m p l o y m e n t S c r e e n i n g E x a m i n a t i o n O v e r w e i g h t U r i n a r y T r a c t I n f e c t i o n R o u t i n e P r e - e m p l o y m e n t S c r e e n i n g E x a m i n a t i o n O v e r w e i g h t U r i n a r y T r a c t I n f e c t i o n R o u t i n e P r e - e m p l o y m e n t S c r e e n i n g E x a m i n a t i o n O v e r w e i g h t U r i n a r y T r a c t I n f e c t i o n Routine Pre-employment Screening Examina tion Overweight Urinary Tract Infection Routine Pre-employment Screening Examina tion Overweight Urinary Tract Infection Routine Pre-employment Screening Examina tion Overweight Urinary Tract Infection Routine Pre-employment Screening Examina tion Overweight Urinary Tract Infection Routine Pre-employment Screening Examina tion Overweight Urinary Tract Infection Routine Pre-employment Screening Examina tion Overweight Urinary Tract Infection Outpatient<td Attender: Rudy 08/02/2019 [place] ID="encounterTypeDescriptionID5">*OUTREACH*</td><td[facility] ([facility] READING PROFESSOR</td><td>[facility] Center</td><td>08/02/2019</td><td></td> READING PROFESSOR Center [address] [place] [address] 11:59:00 PM Center) EST Outpatient<td Attender: Rudy 07/31/2019 O [place] ID="encounterTypeDescriptionID6">WALK[place]</td><td>[facility] 01:00:00 PM v ([facility] READING PROFESSOR</td><td>[facility] Center</td><td>07/31/2019</td><td><content READING PROFESSOR Center 10/2019 r Health ID="encounterDiagnosisID6-0">Routine Pre-employment Screening 02:17:21 PM w Center) Examination</content>, <content EST e ID="encounterDiagnosisID6-1">Overweight</content></td> i g h t R o u t i n e P r e - e m p l o y m e n t S c r e e n i n g E x a m i n a t i o n O v e r w e i g h t R o u t i n e P r e - e m p l o y m e n t S c r e e n i n g E x a m i n a t i o n O v e r w e i g h t R o u t i n e P r e - e m p l o y m e n t S c r e e n i n g E x a m i n a t i o n O v e r w e i g h t R o u t i n e P r e - e m p l o y m e n t S c r e e n i n g E x a m i n a t i o n O v e r w e i g h t R o u t i n e P r e - e m p l o y m e n t S c r e e n i n g E x a m i n a t i o n O v e r w e i g h t R o u t i n e P r e - e m p l o y m e n t S c r e e n i n g E x a m i n a t i o n O v e r w e i g h t R o u t i n e P r e - e m p l o y m e n t S c r e e n i n g E x a m i n a t i o n O v e r w e i g h t R o u t i n e P r e - e m p l o y m e n t S c r e e n i n g E x a m i n a t i o n Overweight Routine Pre-employment Screening Examina tion Overweight Routine Pre-employment Screening Examina tion Overweight Routine Pre-employment Screening Examina tion Overweight Routine Pre-employment Screening Examina tion Overweight Routine Pre-employment Screening Examina tion Overweight Routine Pre-employment Screening Examina tion Overweight Routine Pre-employment Screening Examina tion Overweight Routine Pre-employment Screening Examina tion Outpatient<td Attender: [place] 07/17/2019 [place] ID="encounterTypeDescriptionID7">*No [facility] 12:50:00 P M ([place] Show*</td><td>[facility]</td><td>[facility] 07/17/2019 Health Center</td><td>07/17/2019</td><td></td> 11:59:0 0 PM Center) EST Medications Medication Brand Start Product Dose Route [facility] Indications Reaction Description Data Name Date Form Instructions Instructions Source(s) Amoxicillin Amoxic 12/01/ 1 active Amoxici llin [place] 500 MG Oral illin 2019 ([place] Tablet 500MG 12:00: [place] Amoxicillin Oral 00 AM Neighbo rho 500MG Oral Tablet EDT od [facility] th Tablet Center) Anusol-HC Anusol 09/09/ APPLICAT complet Proc tozone FRANCOIS 2.5% Rectal -HC 2019 ION UNIT ed HC (Christina nt Cream 2.5% 12:00: [place] Rectal 00 AM Neighborho Cream EDT od Health Center) Macrobid Macrob 08/05/ UNIT 1 complet Macrobid FRANCOIS 100MG Oral id 2020 ed ([place] Capsule 100MG 12:00: [place] Oral 00 AM Neighborho Capsul EST od Health e Center) Insurance Providers Payer name Policy type / Policy ID Covered Covered alliance party's Policy Plan Coverage type alliance party ID relationship to Mendez Information mendez [facility] MEDICAID [id number] SP [id number] O MVP Health Individual 0 Self 0 Plan of [place] [facility] MVP Health Individual 0 Self 0 Plan of [facility] Medicaid [id number] S [id number] Managed Care Medicaid [id number] S [id number] [id number] S [id number] FFS Medicaid Dental [id number] S [id number] Healthplex MKD [facility] [id number] S [id number] Options MKD [place] [id number] S [id number] Vision MKD MVP Health Individual 0 Self 0 Plan of New [facility] Medicaid Medicaid [id number] 1 [id number] MVP Health Individual 0 Self 0 Plan of New [facility] MVP Health Individual 0 Self 0 Plan of [place] [facility] MVP Health Individual 0 Self 0 Plan of [place] MVP Health Individual 0 Self 0 Plan of [place] [facility] [place] MVP Health Individual 0 Self 0 Plan of [place] MVP Health Individual 0 Self 0 Plan of [place] [facility] [place] MVP Health Individual 0 Self 0 Plan of [place] Policy [place] MVP Health Individual 0 Self 0 Plan of [place] Policy [place] Problems, Conditions, and Diagnoses Code Display Name Description Problem Type Effective Dates Data Source(s) [id number] Simple goiter Nontoxic Goiter Problem 12/02/2019 ISAMAR AY ([place] (disorder) 12:00:00 AM EDT [facility]) [id number] Simple goiter Nontoxic Goiter Problem 12/02/2019 GREENW AY ([place] (disorder) 12:00:00 AM [facility]) Surgeries/Procedures Procedure Description Date Indications Data Source(s) LIPID PANEL LIPID PANEL 09/10/2019 [place] ([place] 12:00:00 AM [facility]) [id number] 09/10/2019 [facility] ([facility] 12:00:00 AM [facility]) TSH-THYROID TSH-THYROID 09/10/2019 [place] ([facility] STIMULATING STIMULATING 12:00:00 AM [facility]) THYROXINE FREE (FT4) THYROXINE FREE (FT4) 09/10/2019 [place] ([facility] 12:00:00 AM [facility]) HEMOGLOBIN A1C HEMOGLOBIN A1C 09/10/2019 [place] ([facility] 12:00:00 AM [facility]) METABOLIC PANEL METABOLIC PANEL 09/10/2019 [place] ([facility] COMPREHE COMPREHE 12:00:00 AM [facility]) Forms complete Forms complete 08/05/2019 [place] (M ount 12:00:00 AM [facility]) No prior serious No prior serious 08/05/2019 ACCOMACWA Y ([facility] illness illness 12:00:00 AM [facility]) History of Eyes: History of Eyes: 08/05/2019 ACCOMACWA Y ([facility] normal normal 12:00:00 AM [facility]) URINALYSIS URINALYSIS 07/31/2019 [place] ([facility] MICROSCOPIC MICROSCOPIC 12:00:00 AM [facility]) METABOLIC PANEL METABOLIC PANEL 07/31/2019 [place] ([facility] COMPREHE COMPREHE 12:00:00 AM [facility]) HEPATITIS C ANTIBODY HEPATITIS C ANTIBODY 07/31/2019 [place] ([facility] 12:00:00 AM [facility]) [id number] 07/31/2019 [facility] ([facility] 12:00:00 AM [facility]) DRUG SCREEN (URINE) DRUG SCREEN (URINE) 07/31/2019 G REENWAY ([facility] 12:00:00 AM [facility]) VDRL (RPR) VDRL (RPR) 07/31/2019 FRANCOIS ([place] 12:00:00 AM [facility]) Bmi is documented BMI > NORMAL 07/31/2019 FRANCOIS ([place] above normal DOCUMENTED W F/U 12:00:00 AM [facility] hborhood parameters and a PLAN [facility] er) follow-up plan is documented HEPATITIS B SURFACE HEPATITIS B SURFACE 07/31/2019 G REENWAY ([facility] ANTIBODY (HBsAb) ANTIBODY (HBsAb) 12:00:00 AM [facility]) Date of last Date of last 07/31/2019 FRANCOIS ([facility] menstruation menstruation 12:00:00 AM [facility] 07/27/2019 07/27/2019 [facility]) HIV 1/2 ANTIGEN & HIV 1/2 ANTIGEN & 07/31/[address] ([facility] ANTIBODIES, 4TH ANTIBODIES, 4TH 12:00:00 AM [facility] ighborhood GENERATION W/REFLEXES [facility]) W/REFLEXES CHLAMYDIA / CHLAMYDIA / 07/31/2019 FRANCOIS ([facility] GONOCOCCUS URINE GONOCOCCUS URINE 12:00:00 AM [facility]) HEPATITIS B CORE HEPATITIS B CORE 07/31/2019 GREENWA Y ([facility] ANTIBODY (HBcAb); ANTIBODY (HBcAb); 12:00:00 AM [facility]) HEPATITIS Be ANTIGEN HEPATITIS Be ANTIGEN 07/31/2019 FR[place]COIS ([facility] (HBeAG) (HBeAG) 12:00:00 AM [facility]) No prior serious No prior serious 07/31/2019 Y ([facility] illness illness 12:00:00 AM [facility]) Results ID Date Data Source [id number] 08/02/2019 01:47:50 PM EST GREENWA Y ([place] [id number] [facility]) Name Value Range Interpretation Description Data Source(s ) Supporting Code Document(s ) No Results No Results No Results FRANCOIS ([facility] Recorded For [facility]) ID Date Data Source [id number] 07/31/2019 05:02:45 PM EST GREENWA Y ([place] [id number] [facility]) Name Value Range Interpretation Description Data Source(s ) Supporting Code Document(s ) No Results No Results No Results FRANCOIS ([facility] Recorded For [place] Specified [facility]) ID Date Data Source [id number] 07/31/2019 12:00:00 AM EST [place] ([facility]) Name Value Range Interpretation Description Data Source(s ) Supporting Code Document(s ) Hepatitis B Negative Hep B Core FRANCOIS virus core Ab Ab, Tot ([place] [Presence] in [facility] Serum or [facility]) Plasma by Immunoassay ID Date Data Source [id number] 07/31/2019 12:00:00 AM EST FR[place]COIS ([facility]) Name Value Range Interpretation Description Data Source(s ) Supporting Code Document(s ) Hepatitis B Negative Hep Be Ag FR[place]COIS virus e Ag ([place] [Presence] in [facility] Serum or [facility]) Plasma by Immunoassay ID Date Data Source [id number] 07/31/2019 12:00:00 AM EST FR[place]COIS ([facility]) Name Value Range Interpretation Description Data Source(s ) Supporting Code Document(s ) Hepatitis C <0.1 Hep C Virus FRANCOIS virus Ab s/co_rat Ab ([place] Signal/Cutoff io [facility] in Serum or Health Center) Plasma by Immunoassay Note: Negative: < 0.8 Indeterm inate: 0.8 - 0.9 Positive: > 0.9 The CDC recommends that a positive HCV antibody result be followed up with a HCV Nucleic Acid Amplification test (43002 3). ID Date Data Source [id number] 07/31/2019 12:00:00 AM EST [place]IS ([facility]) Name Value Range Interpretation Description Data Source(s ) Supporting Code Document(s ) HIV 1+2 Non HIV Screen FRANCOIS Ab+HIV1 p24 Reactive 4th ([place] Ag [Presence] Generation [facility] in Serum or [facility]) Plasma by Immunoassay ID Date Data Source [id number] 07/31/2019 12:00:00 AM EST [place] ([facility]) Name Value Range Interpretation Description Data Source(s ) Supporting Code Document(s ) Hepatitis B Reactive Hep B Surface FRANCOIS virus Ab, Qual ([place] surface Ab [facility] [Presence] [facility]) in Serum Note: Non R eactive: Inconsistent with immunity, less th an 10 mIU/mL Reactive: Consistent with immunity, greater than 9.9 mIU/mL ID Date Data Source [id number] 07/31/2019 12:00:00 AM EST FRANCOIS ([facility]) Name Value Range Interpretation Description Data Source(s ) Supporting Code Document(s ) Neisseria Negative Neisseria FRANCOIS gonorrhoeae gonorrhoeae, ([place] rRNA [Presence] [place] Neighborhood in [facility]) specimen by Probe and target amplification method Chlamydia Negative Chlamydia FRANCOIS trachomatis trachomatis, ([place] rRNA [Presence] [place] Neighborhood in [facility]) specimen by Probe and target amplification method ID Date Data Source [id number] 07/31/2019 12:00:00 AM EST FRANCOIS ([facility]) Name Value Range Interpretation Description Data Source(s ) Supporting Code Document(s ) Urea 11 mg/dL BUN FRANCOIS ([facility] nitrogen [place] [Mass/volum Neighborhood e] in [facility]) or Plasma Calcium 9.2 Calcium FRANCOIS ([facility] [Mass/volum mg/dL [place] e] in Serum [facility] or [facility]) Glucose 79 mg/dL Glucose FRANCOIS ([facility] [Mass/volum [place] e] in Serum [facility] or [facility]) Protein 7.3 g/dL Protein, Total FRANCOIS ([facility] [Mass/volum [place] e] in Serum [facility] or [facility]) Albumin 4.2 g/dL Albumin FRANCOIS ([facility] [Mass/volum [place] e] in Serum [facility] or [facility]) Note: Ple ase note reference interval change Bilirubin.total 0.2 mg/dL Bilirubin, Total GREENWA Y ([place] [Mass/volume] in Serum or [facility]) Aspartate 20 IU/L AST (SGOT) FRANCOIS ([facility] aminotransferase [place] Neighb orhood [[facility]) activity/volume] in Serum or Plasma Potassium [Moles/volume] 3.5 mmol/L Potassium GREE NWAY ([facility] in Serum or Plasma [facility]) Alkaline phosphatase 84 IU/L Alkaline Phosphatas e FRANCOIS ([facility] [Enzymatic [facility] activity/volume] in [facility]) or Plasma Chloride [Moles/volume] 102 mmol/L Chloride GRE[place] WAY ([facility] in Serum or Plasma [facility]) Alanine aminotransferase 20 IU/L ALT (SGPT) GREE NWAY ([facility] [Enzymatic [facility] activity/volume] in [facility]) or Plasma Creatinine [Mass/volume] 0.76 mg/dL Creatinine GRE ENWAY ([facility] in Serum or Plasma [facility]) Sodium [Moles/volume] in 143 mmol/L Sodium GREE NWAY ([facility] Serum or Plasma [facility]) Carbon dioxide, total 23 mmol/L Carbon Dioxide, GR EENWAY ([place] [Moles/volume] in Serum Total [facility]) Urea nitrogen/Creatinine 14 BUN/Creatinine Ratio FRANCOIS ([place] [Mass Ratio] in Serum or [facility]) Globulin [Mass/volume] in 3.1 g/dL Globulin, Tota l FRANCOIS ([facility] [facility] Serum by calculation [facility]) eGFR If NonAfricn Am 106 eGFR If NonAfricn A m FRANCOIS ([facility] mL/min/1.73 [facility]) eGFR If Africn Am 123 eGFR If Africn Am GREE NWAY ([facility] mL/min/1.73 [facility]) Albumin/Globulin [Mass 1.4 A/G Ratio GREENWA Y ([facility] Ratio] in Serum or Plasma [facility]) ID Date Data Source [id number] 07/31/2019 12:00:00 AM EST FRANCOIS ([facility]) Name Value Range Interpretation Description Data Sup porting Code Source(s) Document(s ) Benzodiazepine Negative Benzodiazepines FRANCOIS s [Presence] ng/mL ([place] in [facility]) Benzoylecgonin Negative Cocaine (Metab.) FRANCOIS e [Presence] ng/mL ([place] in [facility]) Opiates Negative Opiates FRANCOIS [Presence] in ng/mL ([place] Urine [facility]) Note: Opiate test includes Codeine and M orphine only. Phencyclidine Negative ng/mL Phencyclidine GREEN Y ([facility] [Presence] in Urine [facility]) Cannabinoids [Presence] Negative ng/mL Cannabinoid FRANCOIS ([place] in Urine by Screen [facility]) Barbiturates [Presence] Negative ng/mL Barbiturate FRANCOIS ([place] in Urine by Screen [facility]) Propoxyphene [Presence] Negative ng/mL Propoxyphen e, Urine FRANCOIS ([place] in Urine [facility]) Ethanol [Mass/volume] Negative % Ethanol, Urine GR EENWAY ([place] in Urine [facility]) Amphetamines [Presence] Negative ng/mL Amphetamine s, Urine FRANCOIS ([place] in Urine by Screen [place] [facility]) Note: Amphetamine test includes Amphetam ine and Methamphetamine. Methadone [Presence] Negative ng/mL Methadone Scre en, FRANCOIS ([place] in Urine by Screen Urine [facility]) Procedure Vital Signs ID Date Data Source UNK Name Value Range Interpretation Code Description Data Source(s) PhenX - pain, 0 0 FRANCOIS ([facility] abdominal - type [facility]) protocol pt with discomfort in the throat and ear s.Pt did not keep an appointment with the specialists due to the Covid 19, she did not have the blood tests because she forgot Body surface area Derived from 1.76 m2 1.76 m2 [place] ([facility]) pt with discomfort in the throat and ear s.Pt did not keep an appointment with the specialists due to the Covid 19, she did not have the blood tests because she forgot Body mass index (BMI) 26.6 kg/m2 26.6 kg/m2 GRE ENWAY ([place] [facility]) pt with discomfort in the throat and ear s.Pt did not keep an appointment with the specialists due to the Covid 19, she did not have the blood tests because she forgot Body weight 155 [lb_av] 155 [lb_av] [place] ([facility]) pt with discomfort in the throat and ear s.Pt did not keep an appointment with the specialists due to the Covid 19, she did not have the blood tests because she forgot Body height 64 [in_us] 64 [in_us] [place] ([facility]) pt with discomfort in the throat and ear s.Pt did not keep an appointment with the specialists due to the Covid 19, she did not have the blood tests because she forgot Body temperature 98.8 [degF] 98.8 [degF] GREENW AY ([facility]) pt with discomfort in the throat and ear s.Pt did not keep an appointment with the specialists due to the Covid 19, she did not have the blood tests because she forgot Heart rate 75 /min 75 /min [place] ([facility]) pt with discomfort in the throat and ear s.Pt did not keep an appointment with the specialists due to the Covid 19, she did not have the blood tests because she forgot Diastolic blood pressure 82 mm[Hg] 82 mm[Hg] [place] ([facility]) pt with discomfort in the throat and ear s.Pt did not keep an appointment with the specialists due to the Covid 19, she did not have the blood tests because she forgot Systolic blood pressure 123 mm[Hg] 123 mm[Hg] [facility] ([facility]) pt with discomfort in the throat and ear s.Pt did not keep an appointment with the specialists due to the Covid 19, she did not have the blood tests because she forgot PhenX - pain, abdominal - type and 0 0 [place] ([facility]) Patient is here due to a fungul in both big toe nails. Body surface area Derived from 1.73 m2 1.73 m2 [place] ([facility]) Patient is here due to a fungul in both big toe nails. Body mass index (BMI) 25.7 kg/m2 25.7 kg/m2 АЛЕКСАНДР LAUREANO ([place] [facility]) Patient is here due to a fungul in both big toe nails. Body weight 150.0125 [lb_av] 150.0125 [lb_av] [facility] Patient is here due to a fungul in both big toe nails. Body height 64 [in_us] 64 [in_us] [place] ([facility]) Patient is here due to a fungul in both big toe nails. Body temperature 98.4 [degF] 98.4 [degF] [facility] ([facility]) Patient is here due to a fungul in both big toe nails. Heart rate rhythm 1 1 [place]EN[place] Y ([facility]) Patient is here due to a fungul in both big toe nails. Heart rate 187 /min 187 /min [place] ([facility]) Patient is here due to a fungul in both big toe nails. Diastolic blood pressure 83 mm[Hg] 83 mm[Hg] FRANCOIS ([facility]) Patient is here due to a fungul in both big toe nails. Systolic blood pressure 139 mm[Hg] 139 mm[Hg] [facility] ([facility]) Patient is here due to a fungul in both big toe nails. PhenX - pain, abdominal - type and 0 0 FRANCOIS ([facility]) pt is here for lab results and have niesha rwork to be filled out Body surface area Derived from 1.75 m2 1.75 m2 [place] ([facility]) pt is here for lab results and have niesha rwork to be filled out Body mass index (BMI) 26.3 kg/m2 26.3 kg/m2 GRE EN[place]AY ([place] [facility]) pt is here for lab results and have niesha rwork to be filled out Body weight 153 [lb_av] 153 [lb_av] [place] ([facility]) pt is here for lab results and have niesha rwork to be filled out Body height 64 [in_us] 64 [in_us] [place] ([facility]) pt is here for lab results and have niesha rwork to be filled out Body temperature 98.1 [degF] 98.1 [degF] [facility] ([facility]) pt is here for lab results and have niesha rwork to be filled out Respiratory rate 18 /min 18 /min [place] ([facility]) pt is here for lab results and have niesha rwork to be filled out Heart rate 60 /min 60 /min [place] ([facility]) pt is here for lab results and have niesha rwork to be filled out Diastolic blood pressure 68 mm[Hg] 68 mm[Hg] [place] ([facility]) pt is here for lab results and have niesha rwork to be filled out Systolic blood pressure 115 mm[Hg] 115 mm[Hg] [facility] ([facility]) pt is here for lab results and have niesha rwork to be filled out PhenX - pain, abdominal - type and 0 0 FRANCOIS ([facility] protocol [facility]) Pt presents today for employment PE form Body surface area Derived from 1.73 m2 1.73 m2 [place] ([facility]) Pt presents today for employment PE form Body mass index (BMI) 25.6 kg/m2 25.6 kg/m2 GRE ENWAY ([place] [Ratio[facility] Pt presents today for employment PE form Body weight 149 [lb_av] 149 [lb_av] FRANCOIS ([facility]) Pt presents today for employment PE form Body height 64 [in_us] 64 [in_us] [place] ([facility]) Pt presents today for employment PE form Body temperature 98.3 [degF] 98.3 [degF] [facility] ([facility]) Pt presents today for employment PE form Heart rate 78 /min 78 /min FRANCOIS ([facility]) Pt presents today for employment PE form Diastolic blood pressure 69 mm[Hg] 69 mm[Hg] FRANCOIS ([facility]) Pt presents today for employment PE form Systolic blood pressure 110 mm[Hg] 110 mm[Hg] [facility] ([facility]) Pt presents today for employment PE form Patient Treatment Plan of Care Planned Activity Planned Date Details Description Data Source (s) Amoxicillin 500 MG Oral 12/02/2019 12:00:00 FRANCOIS ([place] Tablet AM [facility]) Anusol-HC 2.5% Rectal 09/10/2019 12:00:00 FRANCOIS ([place] Cream AM [facility]) Macrobid 100MG Oral 08/05/2019 12:00:00 [facility] ([place] Capsule AM [facility])
[2020-04-11] MEDS ORDERED: IBUPROFEN 600 MG TABLET (FP) PO ONE ×2 (21:04→21:34)
[2020-04-11] MEDS ORDERED: DEXAMETHASONE LIQUID 0.5 MG/5 ML PO ONE (21:04)
[2020-04-11] MEDS ORDERED: DEXAMETHASONE SOD PHOSPHATE 10 MG/1 ML VIAL ONE (21:33)
--- NOTE | 2020-04-11 21:58 | PDOC ---
History of Present Illness - General Chief Complaint: Sore Throat Stated Complaint: SORE THROAT Time Seen by Provider: 04/11/20 20:41 History Source: Patient Exam Limitations: No Limitations - History of Present Illness Initial Comments: 04/11/20 21:58 29-year-old female with no past medical history presents to the ED with complaint of sore throat for the past 48 and now with difficulty swallowing since this morning. Patient denies fever, chills, headache, thyroid disorder, cough, shortness of breath. Patient did not take anything for the discomfort and decided come to the ER for further evaluation. Is this a multiple visit Asthma Patient?: No Timing/Duration: reports: other Severity: reports: mild Associated Symptoms: reports: sore throat Past History - Travel History Traveled outside of the country in the last 30 days: No Close contact w/someone who was outside of country & ill: No - Medical History Allergies/Adverse Reactions: Allergies Allergy/AdvReac Type Severity Reaction Status Date / Time No Known Allergies Allergy Verified 04/19/19 18:43 Home Medications: Ambulatory Orders Amoxicillin - [Amoxicillin 500mg Capsule -] 500 mg PO BID #14 capsule 04/11/20 Anemia: (iron deficiency) COPD: No Diabetes: No HTN: No Hypercholesterolemia: No - Surgical History Abdominal Surgery: No Cardiac Surgery: No - Reproductive History Is Patient Now?: No (#): 1 Para: 1 - Immunization History Immunization Up to Date: Yes - Psycho-Social/Smoking History Patient Lives Alone: No Lives with/in: spouse/SO Smoking Status: No Smoking History: Never smoked Have you smoked in the past 12 months: No Number of Cigarettes Smoked Daily: 0 - Substance Abuse Hx (Audit-C & DAST Scrn) How often the patient has a drink containing alcohol: Monthly or less Score: In Men: 4 or > Positive; In Women: 3 or > Positive: 1 Screen Result (Pos requires Nsg. Audit-10AR): Negative In the last yr the pt used illegal drug/Rx for NonMed reason: No Review of Systems - Review of Systems Able to Perform ROS?: No Is the patient limited Kuwaiti proficient: No Constitutional: No: Symptoms Reported HEENTM: Yes: Throat Pain, Throat Swelling, Difficulty Swallowing Respiratory: No: Symptoms reported Cardiac (ROS): No: Symptoms Reported ABD/GI: No: Symptoms Reported : No: Symptoms Reported Musculoskeletal: No: Symptoms Reported Integumentary: No: Symptoms Reported Neurological: No: Symptoms reported *Physical Exam - Vital Signs Last Vital Signs Temp Pulse Resp BP Pulse Ox 98.3 F 64 20 114/82 99 04/11/20 20:37 04/11/20 20:37 04/11/20 20:37 04/11/20 20:37 04/11/20 20:37 - Physical Exam General Appearance: Yes: Nourished, Appropriately Dressed. No: Severe Distress HEENT: positive: TMs Normal, Pharyngeal Erythema, Tonsillar Exudate (Clots thank you to right tonsillar) Neck: negative: Lymphadenopathy (L) Respiratory/Chest: positive: Lungs Clear, Normal Breath Sounds. negative: Respiratory Distress, Accessory Muscle Use (There is 1) Cardiovascular: negative: Murmur (No alcohol) Gastrointestinal/Abdominal: positive: Soft. negative: Tenderness Extremity: positive: Normal Inspection Integumentary: positive: Normal Color, Warm, Moist Neurologic: positive: Motor Strength 5/5 (Ambulatory) ED Treatment Course - Medications Given in the ED: ED Medications Discontinued Medications Generic Name Dose Route Start Last Admin Trade Name Freq PRN Reason Stop Dose Admin Dexamethasone 10 mg 04/11/20 21:04 04/11/20 21:42 Decadron Liquid - PO 04/11/20 21:05 10 mg ONCE ONE Administration Ibuprofen 600 mg 04/11/20 21:04 04/11/20 21:42 Motrin - PO 04/11/20 21:05 600 mg ONCE ONE Administration Medical Decision Making - Medical Decision Making 04/11/20 22:04 Chief complaint: Sore throat with swallowing today. No other complaints. Exam: 2+ right tonsillar exudate with mild erythema to the left side. Speaking full clear sentences. Plan: Decadron, Motrin and rapid strep collected 04/11/20 22:06 Laboratory Tests 04/11/20 21:35 Group A Strep Rapid Negative Discharge - Discharge Information Problems reviewed: Yes Clinical Impression/Diagnosis: Tonsillitis Condition: Good Disposition: HOME - Additional Discharge Information Prescriptions: Amoxicillin - [Amoxicillin 500mg Capsule -] 500 mg PO BID #14 capsule - Follow up/Referral Referrals: Huseyin Prince [Primary Care Provider] - - Patient Discharge Instructions Patient Printed Discharge Instructions: DI for Pharyngitis/Tonsillopharyngitis -- Adult Additional Instructions: Take antibiotics for tonsillitis If On my discharge symptoms do not improve or worsen please return to the ED immediately. - Post Discharge Activity
== END 2020-04-11 22:18 | disposition home or self-care (01) ==
LOC: JERFT 20:35
DX: J03.90 Acute tonsillitis, unspecified (principal)
CPT/HCPCS: 87070; 87880; 99284-25

== ENCOUNTER 2020-09-16 05:40 | Day surgery (SDC) | payer OTHER ==
[2020-09-14 19:07] VITALS: BMI 29.2
[2020-09-16 15:07] VITALS: BP 139/89; PULSE 85; TEMP 98
== END 2020-09-16 15:00 | disposition home or self-care (01) ==
LOC: JRADIR 05:40
PROVIDERS: ATTEND Otolaryngology
PROC: 07913ZX Drainage of Right Neck Lymphatic, Percutaneous Approach, Diagnostic (ICD-10-PCS; principal; 2020-09-16)
DX: R59.0 Localized enlarged lymph nodes (principal)
CPT/HCPCS: 10005; 76942; 88173; 88305-TC; 88341-TC; 88342-TC

== ENCOUNTER 2020-11-09 09:13 | Emergency (ER) | payer OTHER ==
[2020-11-09 09:18] VITALS: BP 123/75; PULSE 67; TEMP 98.5; BMI 28.6
[2020-11-09 11:09] LABS: BASO % 0.4 % (0-2.0); EOS % 1.9 % (0-4.5); HEMATOCRIT 42.3 % (32.4-45.2); HEMOGLOBIN 14.7 GM/dL (10.7-15.3); LYMPH % 23.9 % (8-40); MCH 31.8 pg (25.7-33.7); MCHC 34.7 g/dl (32.0-36.0); MEAN CELL VOLUME 91.7 fl (80-96); MEAN PLT VOLUME 8.4 fl (7.5-11.1); MONO % 6.4 % (3.8-10.2); NEUT % 67.4 % (42.8-82.8); PLATELET COUNT 274 K/MM3 (134-434); RBC 4.61 M/mm3 (3.60-5.2); RDW 12.5 % (11.6-15.6)
[2020-11-09 12:01] LABS: CHLORIDE 108 mmol/L (98-107); SODIUM 139 mmol/L (136-145)
[2020-11-09 12:05] LABS: ALBUMIN 3.7 g/dl (3.4-5.0); ANION GAP 4 MMOL/L (8-16); BLOOD UREA NITROGEN 7.7 mg/dL (7-18); CALCIUM 8.5 mg/dL (8.5-10.1); CO2 27 mmol/L (21-32); GLUCOSE,RANDOM 91 mg/dL (74-106)
[2020-11-09 12:06] LABS: SGPT/ALT 32 U/L (13-61)
[2020-11-09 12:08] LABS: CREATININE 0.6 mg/dL (0.55-1.3); SGOT/AST 31 U/L (15-37)
[2020-11-09 12:09] LABS: BILIRUBIN,TOTAL 0.4 mg/dL (0.2-1); TOT PROT 7.6 g/dl (6.4-8.2)
[2020-11-09 12:10] LABS: ALK PHOS 92 U/L (45-117)
== END 2020-11-09 12:56 | disposition home or self-care (01) ==
LOC: JER 09:13
DX: M94.0 Chondrocostal junction syndrome [Tietze] (principal)
CPT/HCPCS: 71046-TC-FY; 80053; 82550; 84484; 84703; 85025; 93005; 93010; 99285-25

== ENCOUNTER 2022-05-01 23:42 | Emergency (ER) | payer OTHER ==
[2022-05-01 23:49] VITALS: BP 129/77; PULSE 59; RESP 18; TEMP 99; BMI 28.3
[2022-05-02 01:56] LABS: BASO % 0.5 % (0-2.0); EOS % 1.8 % (0-4.5); HEMATOCRIT 40.9 % (32.4-45.2); HEMOGLOBIN 14.1 GM/dL (10.7-15.3); LYMPH % 25.1 % (8-40); MCHC 34.4 g/dl (32.0-36.0); MEAN CELL VOLUME 90.2 fl (80-96); MEAN PLT VOLUME 7.7 fl (7.5-11.1); MONO % 9.3 % (3.8-10.2); NEUT % 63.3 % (42.8-82.8); PLATELET COUNT 267 10^3/uL (134-434); RBC 4.53 M/mm3 (3.60-5.2); RDW 12.7 % (11.6-15.6); WHITE BLOOD COUNT 8.3 K/mm3 (4.0-10.0)
[2022-05-02 02:15] LABS: BLOOD UREA NITROGEN 8.9 mg/dL (7-18); CALCIUM 9.5 mg/dL (8.5-10.1)
[2022-05-02 02:16] LABS: ALBUMIN 3.6 g/dl (3.4-5.0)
[2022-05-02 02:18] LABS: CREATININE 0.7 mg/dL (0.55-1.3)
[2022-05-02 02:20] LABS: BILIRUBIN,TOTAL 0.2 mg/dL (0.2-1); TOT PROT 7.2 g/dl (6.4-8.2)
== END 2022-05-02 03:37 | disposition home or self-care (01) ==
LOC: JER 23:42
DX: R07.89 Other chest pain (principal); M54.89 Other dorsalgia
CPT/HCPCS: 36415; 71046-TC-FY; 80053; 84484; 84703; 85025; 85379; 93005; 93010; 99285-25

== ENCOUNTER 2022-05-15 18:16 | Emergency (ER) | payer OTHER ==
[2022-05-15 18:20] VITALS: BP 135/84; PULSE 81; RESP 18; TEMP 98.3; BMI 27.4
[2022-05-15 19:38] LABS: THROAT:GRP A STREP NOT DETECTED (NOTDETECTED)
== END 2022-05-15 18:53 | disposition home or self-care (01) ==
LOC: JERFT 18:16 → JER 18:16 → JERFT 18:53
DX: B34.9 Viral infection, unspecified (principal)
CPT/HCPCS: 0241U-QW; 87651; 99283-25

== ENCOUNTER 2022-06-08 12:37 | Emergency (ER) | payer OTHER ==
[2022-06-08 12:51] VITALS: BP 137/78; PULSE 86; RESP 18; TEMP 98.1; BMI 27.4
== END 2022-06-08 15:10 | disposition home or self-care (01) ==
LOC: JERFT 12:37
DX: R51.9 Headache, unspecified (principal)
CPT/HCPCS: 99281-25

== ENCOUNTER 2022-07-04 19:12 | Emergency (ER) | payer OTHER ==
[2022-07-04 19:25] VITALS: BP 130/84; PULSE 108; RESP 17; TEMP 98.5; BMI 27.4
[2022-07-04] MEDS ORDERED: DIPHTH,PERTUSS(ACELL),TET 0.5 ML DISP.SYRIN IM ONE ×2 (21:17→21:22)
[2022-07-04] MEDS ORDERED: AMOX TR/POT CLAV 875MG/125MG TABLETS (FP) PO ONE (21:19)
[2022-07-04] MEDS ORDERED: AMOX TR/POT CLAV 875MG/125MG TABLETS (FP) ONE (21:22)
== END 2022-07-04 21:31 | disposition home or self-care (01) ==
LOC: JERFT 19:12 → JER 19:12 → JERFT 21:31
PROC: 3E0234Z Introduction of Serum, Toxoid and Vaccine into Muscle, Percutaneous Approach (ICD-10-PCS; principal; 2022-07-04)
DX: S00.81XA Abrasion of other part of head, initial encounter (principal); W55.03XA Scratched by cat, initial encounter
CPT/HCPCS: 90471; 90715; 99283-25

== ENCOUNTER 2023-10-04 18:33 | Emergency (ER) | payer OTHER ==
[2023-10-04 19:08] VITALS: BP 153/94; PULSE 66; RESP 20; TEMP 99.3; BMI 29.2
== END 2023-10-04 21:40 | disposition left against medical advice (07) ==
LOC: JER 18:33 → JERFT 18:33
DX: K08.89 Other specified disorders of teeth and supporting structures (principal)
CPT/HCPCS: 99281-25

== ENCOUNTER → 2024-04-21 | Emergency (ER) | payer OTHER ==
[2024-04-21 17:30] VITALS: BP 118/81; PULSE 70; RESP 18; TEMP 99; BMI 29.2
[2024-04-21 18:28] LABS: BASO % 0.6 % (0-2.0); EOS % 1.4 % (0-4.5); HEMATOCRIT 44.6 % (32.4-45.2); HEMOGLOBIN 14.9 GM/dL (10.7-15.3); LYMPH % 19.3 % (8-40); MCH 30.1 pg (25.7-33.7); MCHC 33.3 g/dl (32.0-36.0); MEAN CELL VOLUME 90.4 fl (80-96); MEAN PLT VOLUME 7.8 fl (7.5-11.1); MONO % 8.5 % (3.8-10.2); NEUT % 70.2 % (42.8-82.8); PLATELET COUNT 276 10^3/uL (134-434); RBC 4.93 M/mm3 (3.60-5.2); RDW 12.8 % (11.6-15.6); WHITE BLOOD COUNT 8.6 K/mm3 (4.0-10.0)
[2024-04-21 18:36] LABS: INR 0.96 (0.83-1.09); PROTHROMBIN TIME (PATIENT) 11.1 SEC (9.7-13.0)
[2024-04-21 18:38] LABS: ACTIVATED PTT 35.3 SECONDS (25.2-36.5)
[2024-04-21 18:45] LABS: POTASSIUM 3.7 mmol/L (3.5-5.1)
[2024-04-21 18:47] LABS: CALCIUM 9.1 mg/dL (8.5-10.1)
[2024-04-21 18:48] LABS: ALBUMIN 3.9 g/dl (3.4-5.0)
[2024-04-21 18:51] LABS: CREATININE 0.8 mg/dL (0.55-1.3)
[2024-04-21 18:52] LABS: BILIRUBIN,TOTAL 0.4 mg/dL (0.2-1)
== END | disposition left against medical advice (07) ==
LOC: JER 17:07
DX: R07.89 Other chest pain (principal); R06.02 Shortness of breath
CPT/HCPCS: 36415; 80053; 83690; 84484; 84703; 85025; 85610; 85730; 93005; 93010; 99284-25